=== PATIENT | male | born 1970 | race Caucasian/White ===

== ENCOUNTER 2017-02-07 10:09 | Outpatient (CLI) | payer OTHER ==
--- NOTE | 2017-02-07 12:33 | DIAGNOSTIC IMAGING REPORT ---
PROCEDURE: US SCROTUM/TESTICLE INDICATION: L TESTICULAR PAIN AND SWELLING R/O TORSION TECHNIQUE: Poe scale and color Doppler sonographic images through the scrotum were obtained. COMPARISON: None. FINDINGS: RIGHT TESTICLE: Measures 5.4 x 3.9 x 3.5 cm with normal echo structure and vascularity. Two epididymal head cyst, 4and 5 mm. Small hydrocele. LEFT TESTICLE: Measures 4.6 x 3.7 x 3.6 cm with normal echo structure and increased vascularity. Hyperemic tail of the left epididymis. Small hydrocele. IMPRESSION: 1. Left epididymo-orchitis 2. Small bilateral hydroceles
== END 2017-02-07 23:00 | disposition home or self-care (01) ==
LOC: US SRH 10:09
DX: N45.3 Epididymo-orchitis (principal); N43.3 Hydrocele, unspecified